=== PATIENT | female | born 1975 | race Caucasian/White ===

== ENCOUNTER 2017-03-13 16:23 | Emergency (ER) | payer SELFPAY ==
[~2017-03-13] VITALS: Ht 170.2 cm; Wt 69.9 kg
[~2017-03-13 16:23] MED LIST: Acetaminophen PO; Docusate Sodium PO; Glycerin RC; HYDR25SU13 RC
--- NOTE | 2017-03-13 17:33 | NUR ---
Patient discharged to home in stable conditon. Written and verbal after care instructions given to patient and family. Patient and family verbalized understanding of instructions.
== END 2017-03-13 17:33 | disposition home or self-care (01) ==
LOC: ER 16:25
DX: M54.30 Sciatica, unspecified side (principal); F17.200 Nicotine dependence, unspecified, uncomplicated
CPT/HCPCS: A4663; J1170; J2550